=== PATIENT | male | born 1955 | race Caucasian/White ===

== ENCOUNTER 2017-04-18 19:18 | Inpatient (IN) | payer MEDICARE ==
[~2017-04-18] VITALS: Ht 167.6 cm; Wt 62.9 kg
[2017-04-18] VITALS: BP 111/74
[2017-04-18 19:43] LABS: BASOPHILS 0.8 % (0-2); HEMATOCRIT 38.4 % (42.0-54.0); HEMOGLOBIN 13.1 g/dL (13.5-17.5); IMMATURE GRANULOCYTES 0.2 % (0-5); LYMPHOCYTES 21.2 % (15-50); MCHC 34.1 g/dL (31.0-37.0); MCV 93.9 fL (80.0-100.0); MEAN PLATELET VOLUME 10.2 fL (7.4-10.4); MONOCYTES 10.3 % (2-11); NEUTROPHILS 60.5 % (40-80); PLATELET COUNT 358 10x3/uL (130-400); RBC 4.09 10x6/uL (4.20-6.10); RDW 14.5 % (11.5-14.5); WBC 12.1 10x3/uL (4.8-10.8)
[2017-04-18 20:13] LABS: ALBUMIN 3.6 g/dL (3.4-5.0); ANION GAP 16.4 mmol/L (8-16); BILIRUBIN - TOTAL 0.69 mg/dL (0.2-1.3); CARBON DIOXIDE 23.4 mmol/L (21.0-32.0); CREATININE - SERUM 1.2 mg/dL (0.6-1.3); POTASSIUM - SERUM 3.8 mmol/L (3.5-5.1); PROTEIN - SERUM 7.2 g/dL (6.4-8.2)
[2017-04-18 22:01] LABS: CREATINE KINASE 117 UL (21-232); MAGNESIUM - SERUM 1.9 mg/dL (1.8-2.4); PRO BNP 282 pg/mL (0-125); TROPONIN-I < 0.017 ng/mL (0.000-0.060)
[2017-04-19] MEDS ORDERED: ZOCOR40 MG PO (00:29)
[2017-04-19] MEDS ORDERED: SEROQUEL300 MG PO (00:30)
[2017-04-19] MEDS ORDERED: NORVASC10 MG PO (00:30)
[2017-04-19] MEDS ORDERED: LOPRESSOR25 MG PO (00:30)
[2017-04-19] MEDS ORDERED: ULTRAM50 MG PO (00:30)
[2017-04-19 04:07] VITALS: BP 111/74; BMI 21.0
[2017-04-19 06:57] VITALS: BP 133/76
[2017-04-19 10:27] VITALS: BP 151/68
[2017-04-19 12:45] VITALS: BP 144/79
[2017-04-19 14:33] LABS: % SATURATION 22 % (15-55); IRON 62 ug/dl (35-150); TOTAL IRON BIND CAPACITY 281 ug/dl (260-445); UNSAT IRON BIND CAPACITY 219 ug/dl (150-375)
[2017-04-19 16:25] VITALS: BP 139/84
[2017-04-19 20:49] VITALS: BP 179/81
[2017-04-20 03:51] VITALS: BP 92/66
[2017-04-20 06:33] VITALS: BP 112/75
[2017-04-20 06:42] LABS: BASOPHILS 0.4 % (0-2); EOSINOPHILS 2.4 % (0-7); HEMATOCRIT 37.6 % (42.0-54.0); HEMOGLOBIN 12.8 g/dL (13.5-17.5); IMMATURE GRANULOCYTES 0.3 % (0-5); LYMPHOCYTES 34.3 % (15-50); MCH 31.5 pg (26.0-34.0); MCV 92.6 fL (80.0-100.0); MEAN PLATELET VOLUME 10.6 fL (7.4-10.4); MONOCYTES 11.2 % (2-11); NEUTROPHILS 51.4 % (40-80); PLATELET COUNT 367 10x3/uL (130-400); RBC 4.06 10x6/uL (4.20-6.10); RDW 14.1 % (11.5-14.5); WBC 11.4 10x3/uL (4.8-10.8)
[2017-04-20 06:51] LABS: CALCIUM 8.7 mg/dL (8.5-10.1); CARBON DIOXIDE 23.5 mmol/L (21.0-32.0); CHLORIDE - SERUM 103 mmol/L (98-107); GLUCOSE 96 mg/dL (74-106); SODIUM 138 mmol/L (136-145)
[2017-04-20 06:52] LABS: CALC OSMOLALITY 276 mosm/kg (275-300); CREATININE - SERUM 0.8 mg/dL (0.6-1.3); POTASSIUM - SERUM 3.1 mmol/L (3.5-5.1); UREA NITROGEN 16 mg/dL (7-18); eGFR NON AFRICAN AMERICAN > 90 mL/min (90-120)
[2017-04-20 07:59] VITALS: BP 116/73
[2017-04-20 11:22] VITALS: BP 181/76
[2017-04-20 14:09] LABS: APPEARANCE HAZY (CLEAR); BILIRUBIN NEGATIVE (NEGATIVE); COLOR YELLOW (YELLOW); GLUCOSE NEGATIVE (NEGATIVE); KETONE NEGATIVE (NEGATIVE); NITRITE NEGATIVE (NEGATIVE); PROTEIN TRACE mg/dL (NEGATIVE); UROBILINOGEN NORMAL (NORMAL)
[2017-04-20 14:13] LABS: BACTERIA MANY /hpf (NONE SEEN); EPITHELIAL CELLS OCC /hpf (0-5); MUCUS <1+ /lpf (NONE SEEN); RED CELLS - URINE 0-5 /hpf (0-5); SPERMATOZOA OCC /hpf (NONE SEEN)
[2017-04-20 15:32] VITALS: BP 163/58
[2017-04-20 20:30] VITALS: BP 151/77
[2017-04-21] VITALS (8 sets, daily range): BP systolic 104–145; BP diastolic 64–84
[2017-04-21 06:46] LABS: BASOPHILS 0.4 % (0-2); EOSINOPHILS 3.6 % (0-7); HEMATOCRIT 36.1 % (42.0-54.0); HEMOGLOBIN 12.5 g/dL (13.5-17.5); IMMATURE GRANULOCYTES 0.2 % (0-5); LYMPHOCYTES 34.5 % (15-50); MCH 31.8 pg (26.0-34.0); MCHC 34.6 g/dL (31.0-37.0); MCV 91.9 fL (80.0-100.0); MEAN PLATELET VOLUME 10.4 fL (7.4-10.4); MONOCYTES 12.4 % (2-11); NEUTROPHILS 48.9 % (40-80); PLATELET COUNT 375 10x3/uL (130-400); RBC 3.93 10x6/uL (4.20-6.10); RDW 14.1 % (11.5-14.5); WBC 11.5 10x3/uL (4.8-10.8)
[2017-04-21 06:50] LABS: CALCIUM 8.4 mg/dL (8.5-10.1); CARBON DIOXIDE 24.5 mmol/L (21.0-32.0); CHLORIDE - SERUM 104 mmol/L (98-107); CREATININE - SERUM 0.8 mg/dL (0.6-1.3); GLUCOSE 95 mg/dL (74-106); SODIUM 138 mmol/L (136-145); eGFR NON AFRICAN AMERICAN > 90 mL/min (90-120)
[2017-04-21 06:51] LABS: CALC OSMOLALITY 274 mosm/kg (275-300); UREA NITROGEN 11 mg/dL (7-18)
[2017-04-21 07:58] LABS: INR 1.06 (0.85-1.17); PROTIME 13.4 SECONDS (11.6-15.0)
[2017-04-22] VITALS (8 sets, daily range): BP systolic 104–139; BP diastolic 48–86
[2017-04-22 07:33] LABS: HEMATOCRIT 32.9 % (42.0-54.0); HEMOGLOBIN 11.5 g/dL (13.5-17.5); LYMPHOCYTES 37.5 % (15-50); MCH 32.1 pg (26.0-34.0); MCV 91.9 fL (80.0-100.0); NEUTROPHILS 49.9 % (40-80); PLATELET COUNT 371 10x3/uL (130-400); RBC 3.58 10x6/uL (4.20-6.10); RDW 14.4 % (11.5-14.5); WBC 10.4 10x3/uL (4.8-10.8)
[2017-04-22 07:47] LABS: CALC OSMOLALITY 276 mosm/kg (275-300); CALCIUM 7.7 mg/dL (8.5-10.1); CHLORIDE - SERUM 106 mmol/L (98-107); CREATININE - SERUM 0.9 mg/dL (0.6-1.3); GLUCOSE 88 mg/dL (74-106); SODIUM 139 mmol/L (136-145); UREA NITROGEN 12 mg/dL (7-18); eGFR NON AFRICAN AMERICAN > 90 mL/min (90-120)
[2017-04-22 09:15] LABS: FOLATE (FOLIC ACID) - SERUM 3.1 ng/mL (>3.0)
[2017-04-23 04:00] VITALS: BP 141/77; BP 147/74; BP 163/75
[2017-04-23 06:00] LABS: BASOPHILS 0.5 % (0-2); EOSINOPHILS 5.9 % (0-7); HEMATOCRIT 37.6 % (42.0-54.0); HEMOGLOBIN 12.6 g/dL (13.5-17.5); IMMATURE GRANULOCYTES 0.1 % (0-5); LYMPHOCYTES 29.6 % (15-50); MCH 31.3 pg (26.0-34.0); MCHC 33.5 g/dL (31.0-37.0); MCV 93.3 fL (80.0-100.0); MEAN PLATELET VOLUME 10.3 fL (7.4-10.4); MONOCYTES 12.2 % (2-11); NEUTROPHILS 51.7 % (40-80); PLATELET COUNT 414 10x3/uL (130-400); RBC 4.03 10x6/uL (4.20-6.10); RDW 14.2 % (11.5-14.5); WBC 11.6 10x3/uL (4.8-10.8)
[2017-04-23 06:51] LABS: CALC OSMOLALITY 276 mosm/kg (275-300); CALCIUM 8.5 mg/dL (8.5-10.1); CARBON DIOXIDE 24.1 mmol/L (21.0-32.0); CHLORIDE - SERUM 105 mmol/L (98-107); CREATININE - SERUM 0.8 mg/dL (0.6-1.3); GLUCOSE 77 mg/dL (74-106); POTASSIUM - SERUM 3.2 mmol/L (3.5-5.1); SODIUM 140 mmol/L (136-145); UREA NITROGEN 9 mg/dL (7-18); eGFR NON AFRICAN AMERICAN > 90 mL/min (90-120)
[2017-04-23 09:10] VITALS: BP 123/58
[2017-04-23 12:16] VITALS: BP 137/72
[2017-04-23 13:21] VITALS: Ht 167.6 cm; Wt 62.9 kg
[2017-04-23 16:45] VITALS: BP 140/84
[2017-04-23 20:00] VITALS: BP 134/95; BP 160/84; BP 167/90
[2017-04-24 04:00] VITALS: BP 129/98
[2017-04-24 06:04] LABS: BASOPHILS 0.2 % (0-2); EOSINOPHILS 1.9 % (0-7); HEMATOCRIT 35.5 % (42.0-54.0); HEMOGLOBIN 12.2 g/dL (13.5-17.5); IMMATURE GRANULOCYTES 0.2 % (0-5); LYMPHOCYTES 13.9 % (15-50); MCH 31.9 pg (26.0-34.0); MCHC 34.4 g/dL (31.0-37.0); MCV 92.7 fL (80.0-100.0); MEAN PLATELET VOLUME 10.6 fL (7.4-10.4); MONOCYTES 6.8 % (2-11); PLATELET COUNT 420 10x3/uL (130-400); RBC 3.83 10x6/uL (4.20-6.10); RDW 14.4 % (11.5-14.5); WBC 13.5 10x3/uL (4.8-10.8)
[2017-04-24 07:19] LABS: CALC OSMOLALITY 274 mosm/kg (275-300); CALCIUM 8.2 mg/dL (8.5-10.1); CARBON DIOXIDE 22.2 mmol/L (21.0-32.0); CHLORIDE - SERUM 102 mmol/L (98-107); CREATININE - SERUM 0.9 mg/dL (0.6-1.3); GLUCOSE 133 mg/dL (74-106); POTASSIUM - SERUM 3.2 mmol/L (3.5-5.1); SODIUM 136 mmol/L (136-145); UREA NITROGEN 14 mg/dL (7-18); eGFR NON AFRICAN AMERICAN > 90 mL/min (90-120)
[2017-04-24 07:44] VITALS: BP 121/68
[2017-04-24 12:13] VITALS: BP 132/72
[2017-04-24 15:17] VITALS: BP 117/71
[2017-04-24 20:00] VITALS: BP 130/84
[2017-04-25 04:00] VITALS: BP 125/61; BP 134/70
[2017-04-25 07:28] VITALS: BP 144/71
[2017-04-25 09:12] LABS: BASOPHILS 0.5 % (0-2); EOSINOPHILS 4.7 % (0-7); HEMATOCRIT 36.1 % (42.0-54.0); HEMOGLOBIN 12.2 g/dL (13.5-17.5); IMMATURE GRANULOCYTES 0.2 % (0-5); LYMPHOCYTES 28.3 % (15-50); MCH 31.7 pg (26.0-34.0); MCHC 33.8 g/dL (31.0-37.0); MCV 93.8 fL (80.0-100.0); MONOCYTES 4.6 % (2-11); NEUTROPHILS 61.7 % (40-80); PLATELET COUNT 444 10x3/uL (130-400); RBC 3.85 10x6/uL (4.20-6.10); RDW 14.5 % (11.5-14.5); WBC 10.1 10x3/uL (4.8-10.8)
[2017-04-25 09:19] LABS: CALC OSMOLALITY 276 mosm/kg (275-300); CALCIUM 8.7 mg/dL (8.5-10.1); CHLORIDE - SERUM 103 mmol/L (98-107); GLUCOSE 114 mg/dL (74-106); SODIUM 137 mmol/L (136-145); UREA NITROGEN 18 mg/dL (7-18); eGFR NON AFRICAN AMERICAN 81 mL/min (90-120)
[2017-04-25 11:27] VITALS: BP 140/76
== END 2017-04-25 14:46 | disposition home or self-care, planned readmission (81) | DRG 312 ==
LOC: D.ER 19:18 → D.M2 22:57 → D.SDCHOLD 04-22 11:35 → D.M2 04-25 14:46
PROVIDERS: Emergency Medicine; General Practice; Internal Medicine Nephrology
DX: R55 Syncope and collapse (principal); N17.9 Acute kidney failure, unspecified; F17.213 Nicotine dependence, cigarettes, with withdrawal; I10 Essential (primary) hypertension; E78.5 Hyperlipidemia, unspecified; I69.334 Monoplegia of upper limb following cerebral infarction affecting left non-dominant side; I69.398 Other sequelae of cerebral infarction; M62.422 Contracture of muscle, left upper arm; G93.89 Other specified disorders of brain; I65.22 Occlusion and stenosis of left carotid artery; I66.02 Occlusion and stenosis of left middle cerebral artery; I65.02 Occlusion and stenosis of left vertebral artery